=== PATIENT | male | born 1990 | race Caucasian/White ===

== ENCOUNTER 2017-06-08 18:08 | Emergency (ER) | payer OTHER ==
[~2017-06-08] VITALS: Ht 185.4 cm; Wt 93.0 kg
[2017-06-08 18:22] VITALS: BP 125/68
== END 2017-06-08 18:55 | disposition home or self-care (01) ==
LOC: ER 18:12
DX: F19.10 Other psychoactive substance abuse, uncomplicated (principal); F17.200 Nicotine dependence, unspecified, uncomplicated
CPT/HCPCS: 99281; A4606; Z7610; Z7502

== ENCOUNTER 2017-10-13 05:04 | Emergency (ER) | payer OTHER ==
[~2017-10-13] VITALS: Ht 185.4 cm; Wt 93.0 kg
--- NOTE | 2017-10-13 05:15 | NUR ---
PT AMBULATORY TO ER BED 3, PT C/O ABD PAIN X 4 DAYS. PT PLACED IN GOWN AND VS MONITOR. PT VSS/RESP EVEN UNLABORED/NAD NOTED/SKIN WARM AND DRY/AOX4. PT STATES HAS HAD MILD NAUSEA WITH NO EMESIS. AWAITING MD GAUTHIER.
--- NOTE | 2017-10-13 05:25 | NUR ---
AT BEDSIDE FOR EVAL.
--- NOTE | 2017-10-13 05:36 | NUR ---
18G IV TO RAC USING HOSPICE CASE MANAGER, BLOOD SAMPLE DRAWN AND SENT TO LAB. IV FLUSHES EASILY WITH NS.
[2017-10-13] MEDS ORDERED: ONDANSETRON HCL/PF 4 MG/2 ML VIAL ONE (05:46)
[2017-10-13 05:48] LABS: BASOPHILS % (AUTO) 0.3 % (0.0-2.0); EOSINOPHILS # (AUTO) 0.1 /CMM (0.0-0.7); EOSINOPHILS % (AUTO) 0.9 % (0.0-6.0); HEMATOCRIT 45 % (39-51); HEMOGLOBIN 15.5 g/dL (13.5-17.5); LYMPHOCYTES % (AUTO) 20.5 % (20.0-44.0); MEAN CORPUSCULAR HEMOGLOBIN 30 PG (26.0-33.0); MEAN CORPUSCULAR HGB CONC 34 g/dl (31.0-36.0); MEAN CORPUSCULAR VOLUME 87 fL (80-96); MONOCYTES # (AUTO) 0.6 /CMM (0.1-1.30); MONOCYTES % (AUTO) 6.6 % (2.0-12.0); NEUTROPHILS % (AUTO) 71.7 % (43.0-81.0); PLATELET COUNT (AUTO) 186 /CMM (150-450); RED BLOOD CELL COUNT(AUTO) 5.16 MIL/uL (4.5-6.0); WHITE BLOOD COUNT (AUTO) 9.8 K/uL (4.3-11.0)
--- NOTE | 2017-10-13 05:51 | NUR ---
PT TO CT VIA STRETCHER, VSS.
--- NOTE | 2017-10-13 05:53 | NUR ---
ZOFRAN 4 MG TAKEN FROM [facility], ER OMNICELL IS BROKEN.
[2017-10-13] MEDS ORDERED: IV NS 0.9% 1,000 ML BAG IV ONE (06:00)
[2017-10-13] MEDS ORDERED: ONDANSETRON HCL/PF 4 MG/2 ML VIAL IVP ONE (06:00)
[2017-10-13 06:02] LABS: CALCIUM, SERUM 9.3 mg/dL (8.5-10.1); CREATININE 1.1 mg/dL (0.6-1.3); POTASSIUM 3.9 mmol/L (3.5-5.1)
[2017-10-13 06:07] LABS: BILIRUBIN,DIRECT 0.1 mg/dL (0.0-0.2); BILIRUBIN,TOTAL 0.5 mg/dL (0.2-1.0); TOTAL PROTEIN, SERUM 7.1 g/dL (6.4-8.2)
--- NOTE | 2017-10-13 07:25 | NUR ---
REPORT GIVEN TO BROWN YUN FOR IVAN.
--- NOTE | 2017-10-13 07:45 | NUR ---
IV removed. Catheter intact and site benign. Pressure and 4x4 applied to site. No bleeding noted.
--- NOTE | 2017-10-13 07:45 | NUR ---
Patient discharged to home in stable condition. Written and verbal after care instructions given. Patient verbalizes understanding of instruction.
[2017-10-13 07:46] VITALS: BP 140/83
== END 2017-10-13 07:47 | disposition home or self-care (01) ==
LOC: ER 05:04
DX: K59.00 Constipation, unspecified (principal); Z87.891 Personal history of nicotine dependence
CPT/HCPCS: 36415; 74176; 80048; 80076; 83690; 85025; 96361; 96374; 99285; A4606; J2405; J7030; Z7610